=== PATIENT | female | born 1965 | race Caucasian/White ===

== ENCOUNTER 2022-02-14 09:09 | Emergency (ER) | payer OTHER, SELFPAY ==
--- NOTE | 2022-02-14 09:17 | ED.URI ---
HPI - URI/Sore Throat General Chief Complaint: Upper Respiratory Infection Stated Complaint: Sore throat Time Seen by Provider: 02/14/22 09:17 Source: patient, family, RN notes reviewed and old records reviewed Mode of arrival: ambulatory Limitations: no limitations History of Present Illness HPI Narrative: 56-year-old female presents to the [facility] with complaints of sore throat and chest congestion since Monday. Has just taken Tylenol for her symptoms. Denies fevers, chest pain, abdominal pain. No nausea vomiting or diarrhea. Patient states that she is concerned for flu or COVID because her is immunocompromise. Patient is flu and COVID vaccinated. MD elicited complaint: sore throat Related Data Home Medications Medication Instructions Recorded Confirmed cholecalciferol (vitamin D3) 50 50 mcg PO DAILY 11/11/19 02/14/22 mcg (2,000 unit) capsule cyanocobalamin (vitamin B-12) 1,000 mcg PO DAILY 11/11/19 02/14/22 1,000 mcg capsule famotidine 20 mg tablet 20 mg PO DAILY PRN 06/02/21 02/14/22 Allergies Allergy/AdvReac Type Severity Reaction Status Date / Time erythromycin base Allergy Unknown Unknown Verified 02/14/22 09:52 levofloxacin Allergy Unknown Unknown Verified 02/14/22 09:52 Penicillins Allergy Unknown Unknown Verified 02/14/22 09:52 ARITRHOMYCIN Allergy Intermediate N & V Uncoded 01/06/22 11:03 COCONUT RASH Allergy Unknown Unknown Uncoded 01/06/22 11:03 POLYCILLIN Allergy Unknown Unknown Uncoded 01/06/22 11:03 Review of Systems Review of Systems: All systems reviewed & are unremarkable except as noted in HPI and below Constitutional: Constitutional: Reports no additional constitutional complaints, Denies chills, Denies fever(s) and Denies headache(s) Eyes: Eyes: Reports no additional eye complaints ENT: Reports as per HPI, Denies vertigo, Denies dizziness, Denies headache(s), Reports nasal congestion and Denies sore throat Cardiovascular: Cardiovascular: Reports no additional cardiovascular complaints, Denies chest pain, Denies syncope, Denies rapid heart rate and Denies dyspnea Respiratory: Respiratory: Reports as per HPI, Reports chest congestion, Reports cough, Denies dyspnea and Denies wheezing Gastrointestinal: Gastrointestinal: Reports no additional gastrointestinal complaints, Denies abdominal pain, Denies diarrhea, Denies nausea and Denies vomiting Musculoskeletal: Musculoskeletal: Reports no additional musculoskeletal complaints and Denies numbness Integumentary/Breasts: Skin/Breast: Reports system reviewed and no additional complaints, except as docu and Denies rash Neurologic: Reports system reviewed and no additional complaints, except as documented, Denies vertigo, Denies dizziness, Denies syncope, Denies headache(s), Denies focal weakness and Denies numbness Psychiatric: Psychiatric: Reports no additional psychiatric complaints Allergic/Immunologic: Allergic/Immunologic: Reports no additional allergic/immunologic complaints and Denies wheezing PMFSH Past Medical History Medical History Anxiety Dyslipidemia GERD without esophagitis Hypothyroidism (acquired) (~2012) Vitamin D deficiency (~2012) Surgical History Surgical History S/P hysterectomy (~2002) S/P oophorectomy (~1999) S/P shoulder surgery (~2004) 2005 - complication of humerus fracture Family History Family History Father Family history of colonic diverticulitis Malignant neoplasm of prostate Family history of malignant melanoma Sibling Family history of atrial fibrillation Social History Social History Social History: She is & caregiver to her . 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 quit 2009, Pt states that she quit for four year
[2022-02-14 09:22] VITALS: BP 120/79; PULSE 84; RESP 16; TEMP 36.8; O2SAT 100
[2022-02-14 19:33] LABS: SARS-CoV-2 RNA PCR Negative
== END 2022-02-14 10:05 | disposition home or self-care (01) ==
PROVIDERS: Emergency Provider Nurse Practitioner; PCP Family Medicine
DX: J06.9 Acute upper respiratory infection, unspecified (principal); Z20.822 Contact with and (suspected) exposure to COVID-19; Z87.891 Personal history of nicotine dependence; E78.5 Hyperlipidemia, unspecified; K21.9 Gastro-esophageal reflux disease without esophagitis; E03.9 Hypothyroidism, unspecified; E55.9 Vitamin D deficiency, unspecified
CPT/HCPCS: 87081; 87804; 87880; 99213; C9803; G0463; U0003; U0005

== ENCOUNTER 2022-02-19 08:27 | Outpatient (CLI) | payer OTHER, SELFPAY ==
--- NOTE | ~2022-02-19 | MM_ITS ---
EXAMINATION: MM screening ela BI w mark HISTORY: Screening mammogram TECHNIQUE: Craniocaudal and mediolateral oblique 3-D tomosynthesis images were obtained and synthetic 2-D images were generated. CAD analysis was submitted and interpreted. COMPARISON: No prior mammogram is available for comparison at this institution. BREAST PARENCHYMAL COMPOSITION: There are scattered areas of fibroglandular density. FINDINGS: Focal asymmetry is noted on each side on craniocaudal views. Diagnostic bilateral mammogram is recommended, with ultrasound if required. IMPRESSION: 1. Bilateral focal asymmetries 2. Bilateral diagnostic mammography is recommended, with ultrasound if required BI-RADS Category 0: Incomplete: Needs additional imaging evaluation. Reviewed, dictated and finalized at location A.
== END 2022-02-19 08:28 | disposition home or self-care (01) ==
LOC: ANHIMG 08:29
PROVIDERS: PCP Family Medicine; Visit Provider Family Medicine
DX: Z12.31 Encounter for screening mammogram for malignant neoplasm of breast (principal); R92.8 Other abnormal and inconclusive findings on diagnostic imaging of breast
CPT/HCPCS: 77063; 77067

== ENCOUNTER 2022-08-20 07:57 | Outpatient (CLI) | payer OTHER, SELFPAY ==
--- NOTE | ~2022-08-20 | DEXA_ITS ---
Bone Density Report Name: CRISTINA ZARAGOZA Age: 56 Sex: Female Ethnicity: White Date of : 1965 Indication: postmenopausal; screening for osteoporosis; prior fracture; hysterectomy; Referring Provider: MITCHELL ORDONEZ Study: Bone densitometry was performed. Exam Date: August 20, 2022 Accession number: [id number] Bone Density: Region BMD T-score Z-score Classification AP Spine(L1-L4) 0.987 -0.5 0.7 Normal Femoral Neck (Left) 0.738 -1.0 0.2 Normal Total Hip (Left) 0.924 -0.2 0.7 Normal Femoral Neck (Right) 0.660 -1.7 -0.5 Osteopenia Total Hip (Right) 0.822 -1.0 -0.2 Normal Total Hip Mean 0.873 -0.6 0.3 Normal World Health Organization criteria for BMD impression classify patients as: Normal (T-score at or above -1.0), Osteopenia (T-score between -1.0 and -2.5), or Osteoporosis (T-score at or below -2.5). 10-year Fracture Risk(1): Major Osteoporotic Fracture 13% Hip Fracture 1.3% Reported Risk Factors: [place] (), Neck BMD=0.660, BMI=33.1, previous fracture (1) FRAX(R) Version 3.08. Fracture probability calculated for an untreated patient. Fracture probability may be lower if the patient has received treatment. Previous Exams: Region Exam Age BMD T-score BMD Change BMD Change Date g/cm2 vs Baseline vs Previous AP Spine (L1-L4) 08/20/2022 56 0.987 -0.5 0.010 (1.0%)# 0.017 (1.8%) 10/22/2015 49 0.970 -0.7 -0.008 (-0.8%) -0.008 (-0.8%) 10/19/2013 47 0.977 -0.6 Total Hip(Left) 08/20/2022 56 0.924 -0.2 -0.025 (-2.6%) -0.067 (-6.8%) 10/22/2015 49 0.991 0.4 0.042 (4.4%)# 0.042 (4.4%)# 10/19/2013 47 0.949 0.1 Total Hip(Right) 08/20/2022 56 0.822 -1.0 -0.077 (-8.5%) -0.089 (-9.8%) 10/22/2015 49 0.910 -0.3 0.012 (1.3%)# 0.012 (1.3%)# 10/19/2013 47 0.898 -0.4 *Denotes significance at 95% confidence level, LSC for AP Spine = 0.022 g/cm2, LSC for Total Hip = 0.027 g/cm2 # Denotes dissimilar scan types or analysis methods Clinical Information Provided by Patient: Has had a low trauma fracture Has used the following medications: Vitamin D Has the following medical conditions: Hysterectomy Patient maximum height was 61 Menopause Age: 37 No regular weight bearing exercise Onset of menses at age 12 Number of children 2 Impression: The patient has low bone mass, based on the Right Femoral Neck T-score. The patient has an estimated ten-year risk of hip fracture
== END 2022-08-20 07:58 | disposition home or self-care (01) ==
PROVIDERS: PCP Family Medicine; Visit Provider Family Medicine
DX: Z78.0 Asymptomatic menopausal state (principal); M85.851 Other specified disorders of bone density and structure, right thigh
CPT/HCPCS: 77080

== ENCOUNTER 2022-12-27 09:44 | Outpatient (CLI) | payer OTHER, SELFPAY ==
[2022-12-27 18:37] LABS: Basophils Absolute Auto 0.1 K/mm3 (0.0-0.1); Basophils Percent Auto 0.7 % (0.2-1.2); Eosinophils Absolute Auto 0.2 K/mm3 (0-0.3); Eosinophils Percent Auto 2.2 % (0-4.4); Hematocrit 44.5 % (37.0-47.0); Hemoglobin 14.6 g/dL (12.0-15.0); Immature Granulocyte Absolute 0.02 K/mm3 (0.00-0.031); Immature Granulocyte Percent A 0.3 % (0-0.5); Lymphocytes Absolute Auto 2.17 K/mm3 (0.9-3.2); Lymphocytes Percent Auto 31.9 % (18.3-44.2); Mean Corpuscular HGB Conc 32.8 g/dl (32-36); Mean Corpuscular Hemoglobin 30.4 pg (26-34); Mean Corpuscular Volume 92.5 fl (80-100); Mean Platelet Volume 10.4 fl (7.4-10.4); Monocytes Absolute Auto 0.6 K/mm3 (0.1-0.6); Monocytes Percent Auto 8.1 % (2.6-8.5); Neutrophils Absolute Auto 3.9 K/mm3 (1.3-6.7); Neutrophils Percent Auto 56.8 % (45.5-73.1); Platelet Count Result 277 k/mm3 (150-375); Red Blood Count 4.81 M/mm3 (4.2-5.4); Red Cell Distribution Width 13.2 % (11.5-14.5); White Blood Count 6.8 K/mm3 (4.5-10.0)
[2022-12-27 20:37] LABS: Alanine Aminotransferase 25 U/L (6-35); Albumin Level 4.9 g/dL (3.5-5.1); Alkaline Phosphatase 50 U/L (38-126); Anion Gap 8 mmol/L (8-16); Aspartate Amino Transferase 49 U/L (14-36); Bilirubin,Total 0.7 mg/dL (0.2-1.3); Blood Urea Nitrogen 15 mg/dL (7-17); Calcium 9.4 mg/dL (8.4-10.2); Carbon Dioxide 29 mmol/L (22-30); Chloride 104 mmol/L (98-107); Estimated Glomerular Filt Rate > 60; Glucose 77 mg/dL (65-110); Potassium 4.2 mmol/L (3.4-5.0); Sodium 141 mmol/L (137-145)
== END 2022-12-27 09:45 | disposition home or self-care (01) ==
LOC: ANHGOSHLAB 09:44
PROVIDERS: PCP Family Medicine; Visit Provider Nurse Practitioner Family
DX: E78.5 Hyperlipidemia, unspecified (principal); E03.9 Hypothyroidism, unspecified
CPT/HCPCS: 36415; 80053; 84443; 85025

== ENCOUNTER 2024-05-31 09:04 | Outpatient (CLI) | payer OTHER, SELFPAY ==
--- NOTE | ~2024-05-31 | XR_ITS ---
[id number] Ordering provider: Brigitte Garza APRN History: . S13.9XXA - Sprain of joints and ligaments of unspecified ... . Comparison: None. FINDINGS: VERTEBRAL BODIES: Normal height and alignment. No visible fracture or subluxation. The dens is intact . DISK SPACES: Well maintained. PARASPINOUS SOFT TISSUES: No prevertebral soft tissue swelling. IMPRESSION: No acute osseous abnormality cervical spine. Reviewed, dictated and finalized at location A.
== END 2024-05-31 09:05 ==
LOC: GOSHIMG 09:06
PROVIDERS: PCP Family Medicine; Visit Provider Nurse Practitioner Family
DX: S13.9XXA Sprain of joints and ligaments of unspecified parts of neck, initial encounter (principal); X58.XXXA Exposure to other specified factors, initial encounter
CPT/HCPCS: 72040

== ENCOUNTER 2024-05-31 09:19 | Outpatient (CLI) | payer OTHER, SELFPAY ==
[2024-05-31 13:51] LABS: Basophils Percent Auto 0.6 % (0.2-1.2); Eosinophils Absolute Auto 0.1 K/mm3 (0-0.3); Eosinophils Percent Auto 2.6 % (0-4.4); Hematocrit 44.6 % (37.0-47.0); Hemoglobin 14.6 g/dL (12.0-15.0); Immature Granulocyte Absolute 0.02 K/mm3 (0.00-0.031); Immature Granulocyte Percent A 0.4 % (0-0.5); Lymphocytes Percent Auto 34.2 % (18.3-44.2); Mean Corpuscular HGB Conc 32.7 g/dl (32-36); Mean Corpuscular Hemoglobin 30.1 pg (26-34); Mean Platelet Volume 10.4 fl (7.4-10.4); Monocytes Absolute Auto 0.4 K/mm3 (0.1-0.6); Neutrophils Absolute Auto 2.7 K/mm3 (1.3-6.7); Neutrophils Percent Auto 54.2 % (45.5-73.1); Platelet Count Result 245 k/mm3 (150-375); Red Blood Count 4.85 M/mm3 (4.2-5.4); Red Cell Distribution Width 13.2 % (11.5-14.5)
[2024-05-31 14:45] LABS: Alanine Aminotransferase 14 U/L (6-35); Albumin Level 4.7 g/dL (3.5-5.1); Alkaline Phosphatase 57 U/L (38-126); Anion Gap 12 mmol/L (4-12); Aspartate Amino Transferase 50 U/L (14-36); Bilirubin,Total 0.9 mg/dL (0.2-1.3); Blood Urea Nitrogen 18 mg/dL (7-17); Calcium 9.3 mg/dL (8.4-10.2); Carbon Dioxide 26 mmol/L (22-30); Chloride 103 mmol/L (98-107); Cholesterol 213 mg/dL (0-200); Estimated Glomerular Filt Rate > 60; Glucose 89 mg/dL (65-110); HDL Direct 69 mg/dL; Potassium 4.2 mmol/L (3.4-5.0); Sodium 141 mmol/L (137-145); Triglycerides 55 mg/dL (<150)
[2024-05-31 14:57] LABS: LDL Cholesterol Direct 110 mg/dL
== END 2024-05-31 09:20 | disposition home or self-care (01) ==
LOC: ANHGOSHLAB 09:20
PROVIDERS: PCP Family Medicine; Visit Provider Nurse Practitioner Family
DX: R73.03 Prediabetes (principal); E03.9 Hypothyroidism, unspecified; E78.5 Hyperlipidemia, unspecified; L30.9 Dermatitis, unspecified; E55.9 Vitamin D deficiency, unspecified; F41.9 Anxiety disorder, unspecified; K21.9 Gastro-esophageal reflux disease without esophagitis; R74.01 Elevation of levels of liver transaminase levels; Z00.00 Encounter for general adult medical examination without abnormal findings
CPT/HCPCS: 36415; 80053; 80061; 83036; 84443; 85025

== ENCOUNTER 2025-03-04 08:28 | Outpatient (CLI) | payer OTHER, SELFPAY ==
--- OUTSIDE RECORDS SUMMARY | 2025-03-04 08:35 | XMS_ITS | Clinical Summary ---
Author Organization [facility] Address [facility] [place] [address] Care Team Providers Care Mixing Pan Tender Name Role Phone Cata Guzman MD Primary Care Provider Social History Tobacco Use Types Packs/Day Years Used Date Smoking Tobacco: Never Assessed Comments Unknown Sex and Gender Information Value Date Recorded Sex Assigned at Not on file Legal Sex Female 8:35 PM CDT Gender Identity Not on file Sexual Orientation Not on file Plan of Treatment Health Maintenance Due Date Last Done Comments Cervical Cancer Screening Pa p Smear (Age 30 to 64) Every 3 Years 1965 Colorectal Cancer Screening Colonoscopy (10 Years) 1965 Annual Physical 1967 Hepatitis C 1982 DTaP, Tdap and Td Vaccines ( 1 - Tdap) 1983 Cervical Cancer Screening Pa p with HPV Testing (Age 30 to 64) Every 5 Years 1994 Cervical Cancer Screening wi th HPV 1994 Pneumococcal Vaccine: 50+ Years (1 of 1 - PCV) 2014 Zoster Vaccines (1 of 2) 2014 Mammogram Screening 12/07/2022 12/07/2020, 09/02/2019 COVID-19 Vaccine ( - 2023-2 5 season) 2024 RSV Immunization or 60+ Years (1 - 1-dose 75+ series) 2039 Meningococcal B Vaccine Aged Out No l onger eligible based on patient's age to complete this topic Meningococcal Vaccine Aged Out No tigist shelby eligible based on patient's age to complete this topic RSV Immunizations Under 20 Months Aged Out No longer eligible b ased on patient's age to complete this topic Procedures Procedure Name Priority Date/Time Associated Diagnosis Comments MG SCREENING W LEWIS DESTINY DIGI Routine 12/07/2020 8:12 AM LINK ASSEMBLER Breast cancer screening by mammogram from Last 3 Months or Most Recently Relevant to Health Maintenance Results * MG SCREENING W LEWIS DESTINY DIGI (12/07/2020 8:12 AM LINK ASSEMBLER) Anatomical Region Laterality Modality Breast Bilateral Mammography 12/07/2020 1:53 PM LINK ASSEMBLER Narrative 12/07/2020 1:54 PM LINK ASSEMBLER EXAMINATION: MG SCREENING W LEWIS DESTINY DIGI WITH TOMOSYNTHESIS AND COMPUTER-AIDED DETECTION (CAD) DATE: 12/07/2020 7:59 AM COMPARISON STUDIES: 09/02/2019, 07/31/2018, 04/11/2017, 09/12/2015. CLINICAL HISTORY: screening . Family history breast CA: Aunt. FINDINGS: Bilateral CC, MLO, 2-D and 3-D acquisitions. Scattered residual fibroglandular parenchyma . Similar in appearance and distribution to the previous exams. No evidence of dominant mass, architectural distortion, skin thickening, nipple retraction or suspicious clusters of microcalcifications. Benign appearing calcifications redemonstrated. CONCLUSION: 1. BI-RADS Category 2 - benign findings. Annual screening mammography recommended. 2. BREAST TISSUE COMPOSITION: Category B - There are areas of scattered fibroglandular density. MQSA BI-RADS Categories: Category 0 - needs additional imaging evaluation. Category 1 - negative. Category 2 - benign findings. Category 3 - probably benign findings, but short interval follow-up is recommended. Category 4 - suspicious abnormality and biopsy should be considered though the lesion may well be benign. Category 5 - highly suggestive of malignancy and appropriate action should be taken. A) A negative report should not delay a biopsy if a dominant or clinically suspicious mass is present. B) Adenosis and dense breasts may obscure an underlying neoplasm. C) Study interpreted with computer aided detection. Voice recognition software utilized. Interpreted By: Aayush Wdae, 12/07/2020 1:53 PM Cata Guzman MD MAMMO Final Result from Last 3 Months or Most Recently Relevant to Health Maintenance Insurance [employer] [facility] Care Teams Mixing Pan Tender Relationship Specialty Start Date End Date Cata Guzman MD [address] [place] [address] PCP - General FAMILY PRACTICE 10/15/20
[2025-03-04 13:13] LABS: Basophils Percent Auto 0.7 % (0.2-1.2); Eosinophils Absolute Auto 0.1 K/mm3 (0-0.3); Hematocrit 43.5 % (37.0-47.0); Hemoglobin 13.8 g/dL (12.0-15.0); Immature Granulocyte Absolute 0.02 K/mm3 (0.00-0.031); Immature Granulocyte Percent A 0.4 % (0-0.5); Lymphocytes Absolute Auto 1.73 K/mm3 (0.9-3.2); Lymphocytes Percent Auto 30.7 % (18.3-44.2); Mean Corpuscular HGB Conc 31.7 g/dl (32-36); Mean Corpuscular Hemoglobin 29.6 pg (26-34); Mean Corpuscular Volume 93.1 fl (80-100); Mean Platelet Volume 10.2 fl (7.4-10.4); Monocytes Absolute Auto 0.5 K/mm3 (0.1-0.6); Monocytes Percent Auto 8.5 % (2.6-8.5); Neutrophils Absolute Auto 3.3 K/mm3 (1.3-6.7); Neutrophils Percent Auto 57.7 % (45.5-73.1); Platelet Count Result 262 k/mm3 (150-375); Red Blood Count 4.67 M/mm3 (4.2-5.4); Red Cell Distribution Width 14.2 % (11.5-14.5); White Blood Count 5.6 K/mm3 (4.5-10.0)
[2025-03-04 13:22] LABS: Alanine Aminotransferase 26 U/L (6-35); Albumin Level 4.5 g/dL (3.5-5.1); Alkaline Phosphatase 38 U/L (38-126); Anion Gap 9 mmol/L (4-12); Aspartate Amino Transferase 32 U/L (14-36); Bilirubin,Total 0.5 mg/dL (0.2-1.3); Blood Urea Nitrogen 18 mg/dL (7-17); Calcium 9.5 mg/dL (8.4-10.2); Carbon Dioxide 28 mmol/L (22-30); Chloride 105 mmol/L (98-107); Cholesterol 228 mg/dL (0-200); Estimated Glomerular Filt Rate > 60; Glucose 78 mg/dL (65-110); HDL Direct 61 mg/dL; Potassium 4.2 mmol/L (3.4-5.0); Sodium 142 mmol/L (137-145); Triglycerides 58 mg/dL (<150)
[2025-03-04 13:32] LABS: LDL Cholesterol Direct 122 mg/dL
[2025-03-04 13:51] LABS: Free T4 Free Thyroxine 1.33 ng/dL (0.78-2.19); Vitamin D 25 Hydroxy 52.4 ng/mL
== END 2025-03-04 08:29 | disposition home or self-care (01) ==
LOC: ANHGOSHLAB 08:29
PROVIDERS: PCP Family Medicine; Visit Provider Nurse Practitioner Family
DX: E03.9 Hypothyroidism, unspecified (principal); E78.5 Hyperlipidemia, unspecified; E55.9 Vitamin D deficiency, unspecified
CPT/HCPCS: 36415; 80053; 80061; 82306; 84439; 84443; 85025

== ENCOUNTER 2025-08-26 07:58 | Outpatient (CLI) | payer OTHER, SELFPAY ==
--- NOTE | ~2025-08-26 | DEXA_ITS ---
Bone Density Report Name: CRISTINA ZARAGOZA Nasir Age: 59 Sex: Female Ethnicity: White Date of : 1965 Indication: postmenopausal; screening for osteoporosis; prior fracture; hysterectomy; Referring Provider: CRISTINA SOLANO Study: Bone densitometry was performed. Exam Date: August 26, 2025 Accession number: [id number] Bone Density: Region BMD T-score Z-score Classification AP Spine(L2, L3, L4) 1.025 -0.5 1.0 Normal Femoral Neck (Left) 0.648 -1.8 -0.5 Osteopenia Total Hip (Left) 0.913 -0.2 0.7 Normal Femoral Neck (Right) 0.641 -1.9 -0.6 Osteopenia Total Hip (Right) 0.933 -0.1 0.9 Normal Total Hip Mean 0.923 -0.2 0.8 Normal World Health Organization criteria for BMD impression classify patients as: Normal (T-score at or above -1.0), Osteopenia (T-score between -1.0 and -2.5), or Osteoporosis (T-score at or below -2.5). 10-year Fracture Risk(1): Major Osteoporotic Fracture 16% Hip Fracture 1.9% Reported Risk Factors: [place] (), Neck BMD=0.641, BMI=25.5, previous fracture (1) FRAX(R) Version 3.08. Fracture probability calculated for an untreated patient. Fracture probability may be lower if the patient has received treatment. Previous Exams: Region Exam Age BMD T-score BMD Change BMD Change Date g/cm2 vs Baseline vs Previous AP Spine (L2-L4) 08/26/2025 59 1.025 -0.5 -0.001 (-0.1%) -0.017 (-1.6%) 08/20/2022 56 1.042 -0.3 0.015 (1.5%)# 0.019 (1.9%) 10/22/2015 49 1.023 -0.5 -0.004 (-0.4%) -0.004 (-0.4%) 10/19/2013 47 1.026 -0.5 Total Hip(Left) 08/26/2025 59 0.913 -0.2 -0.035 (-3.7%) -0.010 (-1.1%) 08/20/2022 56 0.924 -0.2 -0.025 (-2.6%) -0.067 (-6.8%) 10/22/2015 49 0.991 0.4 0.042 (4.4%)# 0.042 (4.4%)# 10/19/2013 47 0.949 0.1 Total Hip(Right) 08/26/2025 59 0.933 -0.1 0.035 (3.9%)# 0.112 (13.6%)* 08/20/2022 56 0.822 -1.0 -0.077 (-8.5%) -0.089 (-9.8%) 10/22/2015 49 0.910 -0.3 0.012 (1.3%)# 0.012 (1.3%)# 10/19/2013 47 0.898 -0.4 *Denotes significance at 95% confidence level, LSC for AP Spine = 0.022 g/cm2, LSC for Total Hip = 0.027 g/cm2 # Denotes dissimilar scan types or analysis methods Clinical Information Provided by Patient: Has had a low trauma fracture Has used the following medications: Vitamin D Has the following medical conditions: Hysterectomy Patient maximum height was 61 Menopause Age: 37 Drinks caffeinated beverages Onset of menses at age 12 Number of children 2 Impression: The patient has low bone mass, based on the Right Femoral Neck T-score. The patient has an estimated ten-year risk of hip fracture of 1.9% and an estimated ten-year risk of major fracture of 16%, based on the WHO FRAX algorithm. The patient has risk factors, including: previous fracture. No significant bone loss was observed. Discussion: BONE DENSITY IS LOW AT ONE OR MORE SKELETAL SITES. This patient's lowest T-score is low at one or more skeletal sites. It meets the World Health Organization's (WHO) criteria for ?low bone mass? (T-score between -1.0 and -2.5). The patient's 10-year risk of fracture as calculated by FRAX is less than the threshold where pharmacological therapy is recommended by the National Osteoporosis Foundation (NOF). However, all treatment decisions require clinical judgment and consideration of individual patient factors, including patient preferences, comorbidities, previous drug use, risk factors not captured in the FRAX model (e.g., frailty, falls, vitamin D deficiency, increased bone turnover, interval significant decline in bone density) and possible under or overestimation of fracture risk by FRAX. The patient should follow a healthful lifestyle (good nutrition with adequate calcium and vitamin D, and appropriate weight-bearing exercise). Follow-Up: Consider repeating this study in 2 to 3 years to reassess this patient's status, or sooner if there is some new clinical indication. Reported by: HWIT on 08/26/2025 8:44:00 AM. Reviewed, dictated and finalized at location A.
--- NOTE | ~2025-08-26 | MM_ITS ---
EXAMINATION: MM screening ela BI w mark HISTORY: Screening TECHNIQUE: Craniocaudal and mediolateral oblique 3-D tomosynthesis images were obtained and synthetic 2-D images were generated. CAD analysis was submitted and interpreted. COMPARISON: Comparison to multiple prior studies sequentially, with oldest reviewed study dated , 09/02/2019 BREAST PARENCHYMAL COMPOSITION: There are scattered areas of fibroglandular density. FINDINGS: There is no evidence of suspicious mass, calcification, or architectural distortion to suggest malignancy in either breast. IMPRESSION: 1. No mammographic evidence of malignancy. 2. Recommend routine screening mammography in one year. BI-RADS Category 1: Negative Reviewed, dictated and finalized at location B. RVISOR SUNGLASSES
== END 2025-08-26 07:59 | disposition home or self-care (01) ==
PROVIDERS: PCP Family Medicine; Visit Provider Nurse Practitioner Family
DX: Z12.31 Encounter for screening mammogram for malignant neoplasm of breast (principal); Z78.0 Asymptomatic menopausal state; M85.852 Other specified disorders of bone density and structure, left thigh; M85.851 Other specified disorders of bone density and structure, right thigh
CPT/HCPCS: 77063; 77067; 77080